=== PATIENT | female | born 1985 | race Caucasian/White ===

== ENCOUNTER 2017-12-04 05:35 | Emergency (ER) | payer MEDICAID ==
[~2017-12-04 05:35] MED LIST: CEPH500C2 PO; OMEP20TA5 PO
== END 2017-12-04 06:30 | disposition left against medical advice (07) ==
LOC: ER 05:36
DX: R52 Pain, unspecified (principal); L08.9 Local infection of the skin and subcutaneous tissue, unspecified; Z53.21 Procedure and treatment not carried out due to patient leaving prior to being seen by health care provider

== ENCOUNTER 2017-12-07 09:50 | Emergency (ER) | payer MEDICAID ==
[~2017-12-07] VITALS: Ht 165.1 cm; Wt 50.0 kg
[2017-12-07 09:51] VITALS: BP 133/71
== END 2017-12-07 10:42 | disposition home or self-care (01) ==
LOC: ER 09:51
DX: Z13.9 Encounter for screening, unspecified (principal); F15.10 Other stimulant abuse, uncomplicated; Z88.5 Allergy status to narcotic agent; Z79.899 Other long term (current) drug therapy; G89.29 Other chronic pain; Z59.0 Homelessness; Z56.0 Unemployment, unspecified
CPT/HCPCS: 99283

== ENCOUNTER 2019-08-30 17:53 | Emergency (ER) | payer MEDICAID, OTHER ==
[~2019-08-30] VITALS: Ht 160 cm; Wt 54.5 kg
[2019-08-30] MEDS ORDERED: acetaminophen 325mg tablet PO ONE (20:45)
[2019-08-30 20:54] VITALS: BP 141/96
== END 2019-08-30 20:56 ==
LOC: ER 17:54
DX: S06.0X9A Concussion with loss of consciousness of unspecified duration, initial encounter (principal); S02.2XXA Fracture of nasal bones, initial encounter for closed fracture; S01.511A Laceration without foreign body of lip, initial encounter; G89.29 Other chronic pain; F15.90 Other stimulant use, unspecified, uncomplicated; F10.99 Alcohol use, unspecified with unspecified alcohol-induced disorder; Z59.0 Homelessness; Z56.0 Unemployment, unspecified; Z79.899 Other long term (current) drug therapy; Y04.8XXA Assault by other bodily force, initial encounter; Y93.89 Activity, other specified; Y92.148 Other place in prison as the place of occurrence of the external cause; Y99.8 Other external cause status; Y90.9 Presence of alcohol in blood, level not specified
CPT/HCPCS: 70450; 70486; 99284

== ENCOUNTER 2020-07-13 07:59 | Emergency (ER) | payer MEDICAID, OTHER ==
[~2020-07-13] VITALS: Ht 162.6 cm; Wt 49.3 kg
[2020-07-13 08:04] VITALS: BP 116/77
[2020-07-13] MEDS ORDERED: CEPH250T PO (08:24)
[2020-07-13 08:33] LABS: URINE HCG NEGATIVE (NEG)
[2020-07-13 08:43] LABS: CLARITY,URINE CLOUDY (Clear); GLUCOSE, URINE NEGATIVE (Neg); KETONES,URINE NEGATIVE (Neg); LEUKOCYTE ESTERASE ,URINE SMALL (Neg); NITRITES, URINE POSITIVE (Neg); OCCULT BLOOD,URINE LARGE (Neg); PROTEIN,URINE TRACE mg/dl (Neg)
[2020-07-13 08:46] LABS: COLOR,URINE DARK YELLOW (Yellow); UA COLLECTION TYPE CLN CATCH MIDSTREAM
[2020-07-13 08:50] LABS: RBC,URINE 0-2 /HPF (0-2); WBC,URINE TNTC /HPF (0-4)
[2020-07-13 08:51] LABS: BACTERIA,URINE 4+ /HPF (Neg); MUCUS STRANDS MANY /LPF (Neg); SQUAMOUS EPITHELIAL CELL,UR MANY /LPF (FEW); WBC CLUMPS,URINE FEW /HPF (NEGATIVE)
== END 2020-07-13 08:32 | disposition home or self-care (01) ==
LOC: ER 07:59
DX: R82.998 Other abnormal findings in urine (principal); R50.9 Fever, unspecified; G89.29 Other chronic pain; F15.90 Other stimulant use, unspecified, uncomplicated; Z98.890 Other specified postprocedural states; Z72.89 Other problems related to lifestyle; Z56.0 Unemployment, unspecified; Z59.0 Homelessness; Z79.2 Long term (current) use of antibiotics; Z79.899 Other long term (current) drug therapy
CPT/HCPCS: 81001; 81025; 99283

== ENCOUNTER 2020-10-29 06:40 | Emergency (ER) | payer MEDICAID ==
[~2020-10-29] VITALS: Ht 162.6 cm; Wt 54.5 kg
== END 2020-10-29 07:01 | disposition home or self-care (01) ==
LOC: ER 06:40
DX: Z00.00 Encounter for general adult medical examination without abnormal findings (principal); R46.0 Very low level of personal hygiene; R21 Rash and other nonspecific skin eruption; E86.0 Dehydration; G89.29 Other chronic pain; Z59.0 Homelessness; Z56.0 Unemployment, unspecified; Z98.890 Other specified postprocedural states; Z79.899 Other long term (current) drug therapy
CPT/HCPCS: 99281

== ENCOUNTER 2020-12-23 10:25 | Emergency (ER) | payer MEDICAID ==
[~2020-12-23] VITALS: Ht 167.6 cm; Wt 57.7 kg
[2020-12-23 10:29] VITALS: BP 114/83
== END 2020-12-23 10:54 | disposition home or self-care (01) ==
LOC: ER 10:26
DX: F15.90 Other stimulant use, unspecified, uncomplicated (principal); Z72.89 Other problems related to lifestyle; G89.29 Other chronic pain; Z59.0 Homelessness; Z56.0 Unemployment, unspecified; Z98.890 Other specified postprocedural states; Z79.899 Other long term (current) drug therapy
CPT/HCPCS: 99281

== ENCOUNTER 2021-11-28 16:55 | Inpatient (IN) | payer MEDICAID ==
[~2021-11-28] VITALS: Ht 162.6 cm; Wt 56.8 kg
[~2021-11-28 16:55] MED LIST changes: +OMEP20TA43 PO; -OMEP20TA5 PO
[2021-11-28] MEDS ORDERED: LORazepam 2 mg/ml vial IM ONE ×2 (17:00)
[2021-11-28] MEDS ORDERED: haloperidol lactate 5mg/ml inj IM ONE ×2 (17:00)
[2021-11-28] MEDS ORDERED: diphenhydrAMINE 50 mg/ml inj IM ONE (17:00)
[2021-11-28 17:58] LABS: BASOPHILS % (AUTO) 0.1 % (0-1); EOSINOPHILS % (AUTO) 0.1 % (0-6); HEMATOCRIT 43.1 % (35.0-45.0); HEMOGLOBIN 14.7 g/dl (12.0-16.0); LYMPHOCYTES # (AUTO) 1.8 X10'3 (1.1-4.8); LYMPHOCYTES % (AUTO) 15.1 % (21-51); MEAN CORPUSCULAR HEMOGLOBIN 32.4 PG (27.0-31.0); MEAN CORPUSCULAR VOLUME 95.2 FL (78-98); MEAN PLATELET VOLUME 7.4 FL (7.4-10.4); MONOCYTES # (AUTO) 1.3 X10'3 (0-0.9); MONOCYTES % (AUTO) 10.4 % (2-12); NEUTROPHILS # (AUTO) 9.1 X10'3 (1.8-7.7); NEUTROPHILS % (AUTO) 74.3 % (42-75); PLATELET COUNT 286 X10'3 (140-440); RED BLOOD COUNT 4.53 X10'6 (4.20-5.60); RED CELL DISTRIBUTION WIDTH 14.7 % (11.5-14.5); WHITE BLOOD COUNT 12.2 X10'3 (4.5-11.0)
[2021-11-28 18:09] LABS: ALANINE AMINOTRANSFERASE 77 U/L (12-78); ALBUMIN 4.3 G/DL (3.4-5.0); ALBUMIN/GLOBULIN RATIO 0.9 (1.1-1.5); ALKALINE PHOSPHATASE 98 IU/L (46-116); ANION GAP 13 (8-16); ASPARTATE AMINO TRANSFERASE 51 U/L (10-37); BILIRUBIN,TOTAL 1.4 MG/DL (0.1-1.0); BLOOD UREA NITROGEN 11 MG/DL (7-18); BUN/CREATININE RATIO 13.1 (6.6-38.0); CALCIUM 9.2 MG/DL (8.5-10.1); CHLORIDE 95 MMOL/L (99-107); CREATININE 0.84 MG/DL (0.40-0.90); GLUCOSE 87 MG/DL (70-104); POTASSIUM 3.1 MMOL/L (3.5-5.1); SODIUM 134 MMOL/L (135-145); TOTAL CARBON DIOXIDE 26.4 MMOL/L (24-32); TOTAL PROTEIN 8.9 G/DL (6.4-8.2); eGFR 78 ML/MIN
[2021-11-28 18:22] LABS: ETHANOL < 0.010 GM/DL (0.0-0.010)
[2021-11-28 19:33] LABS: CLARITY,URINE SLIGHTLY CLOUDY (Clear); COLOR,URINE YELLOW (Yellow); GLUCOSE, URINE NEGATIVE (Neg); KETONES,URINE 40 mg/dl (Neg); LEUKOCYTE ESTERASE ,URINE TRACE (Neg); NITRITES, URINE POSITIVE (Neg); OCCULT BLOOD,URINE MODERATE (Neg); PROTEIN,URINE NEGATIVE (Neg); URINE HCG NEGATIVE (NEG); UROBILINOGEN,URINE 0.2 E.U/dL (0.2-1.0)
[2021-11-28 19:47] LABS: URINE AMPHETAMINE SCREEN POSITIVE (Neg); URINE BARBITUATE SCREEN NEGATIVE (Neg); URINE BENZODIAZEPINES SCREEN NEGATIVE (Neg); URINE CANNABINOID SCREEN NEGATIVE (Neg); URINE COCAINE SCREEN NEGATIVE (Neg); URINE METHADONE SCREEN NEGATIVE (Neg); URINE OPIATE SCREEN NEGATIVE (Neg); URINE PHENCYCLIDINE SCREEN NEGATIVE (Neg)
[2021-11-28 19:52] LABS: UA COLLECTION TYPE NON-SPECIFIED
[2021-11-28 19:54] LABS: BACTERIA,URINE 4+ /HPF (Neg); MUCUS STRANDS FEW /LPF (Neg); SQUAMOUS EPITHELIAL CELL,UR FEW /LPF (FEW)
[2021-11-28 19:55] LABS: AMORPHOUS URATES 1+; WBC CLUMPS,URINE FEW /HPF (NEGATIVE)
--- NOTE | 2021-11-28 20:34 | NUR ---
Arrived from ED room 13, called charge nurse for report, was told someone will call. None recieved as of yet. Pt chart reviewed and pt is resting comfortably with no signs of distress.
--- NOTE | 2021-11-28 20:35 | NUR ---
Pt recieved to hallway bed 27 from the ED brought in by the EMT. Assessment complete, pt not displaying signs or symptoms of distress. EMR reviewed, pt sleeping currently in bed located within my direct line of sight at the nursing station. No report recieved, charge nurse notified.
--- NOTE | 2021-11-28 23:09 | NUR ---
PT resting in bed asleep. Turns self occasionally. No signs of distress.
--- NOTE | 2021-11-29 00:53 | NUR ---
Pt asleep in bed, moves frequently, no signs of distress at this time.
--- NOTE | 2021-11-29 03:21 | NUR ---
Pt sleeping. Occasionally repositions self in bed. No signs of distress.
--- NOTE | 2021-11-29 06:30 | NUR ---
Dr Hylton made aware temp this AM was 101.7. MD asked why pat had fever and needs more information regarding patient.
--- NOTE | 2021-11-29 07:36 | NUR ---
Dr Hylton made aware patient temp is now 102.4 with positive UA yesterday that was not addressed, K 3.1, WBC 12.2. MD to enter abx, will give tylenol via verbal order (see EMAR).
[2021-11-29] MEDS ORDERED: acetaminophen 325mg tablet PO ONE ×3 (07:40→20:30)
[2021-11-29] MEDS ORDERED: normal saline 1000ML IV soln IV ONE ×2 (07:50→22:00)
[2021-11-29] MEDS ORDERED: CefTRIAXone 2gm/NS 100ml IVPB 100 ML IV ONE (07:50)
[2021-11-29 08:25] LABS: BASOPHILS # (AUTO) 0.1 X10'3 (0-0.2); BASOPHILS % (AUTO) 0.8 % (0-1); EOSINOPHILS % (AUTO) 0.1 % (0-6); HEMATOCRIT 37.9 % (35.0-45.0); HEMOGLOBIN 12.6 g/dl (12.0-16.0); LYMPHOCYTES # (AUTO) 2.3 X10'3 (1.1-4.8); LYMPHOCYTES % (AUTO) 17.9 % (21-51); MEAN CORPUSCULAR HEMOGLOBIN 31.7 PG (27.0-31.0); MEAN CORPUSCULAR HGB CONC 33.4 g/dL (33.0-36.5); MEAN CORPUSCULAR VOLUME 94.8 FL (78-98); MEAN PLATELET VOLUME 7.5 FL (7.4-10.4); MONOCYTES # (AUTO) 1.8 X10'3 (0-0.9); MONOCYTES % (AUTO) 13.7 % (2-12); NEUTROPHILS # (AUTO) 8.6 X10'3 (1.8-7.7); NEUTROPHILS % (AUTO) 67.5 % (42-75); PLATELET COUNT 256 X10'3 (140-440); RED BLOOD COUNT 3.99 X10'6 (4.20-5.60); RED CELL DISTRIBUTION WIDTH 14.5 % (11.5-14.5); WHITE BLOOD COUNT 12.8 X10'3 (4.5-11.0)
--- NOTE | 2021-11-29 08:31 | NUR ---
Dr Hylton made aware patient's eyes are swollen, face is red and swollen, pat unable to open eyes. Possibly related to tree sap patient rubbed all over her face. Lubricant placed on dried tree sap on patient's face to help remove substance. MD to evaluate patient at bedside.
[2021-11-29 08:44] LABS: ALANINE AMINOTRANSFERASE 48 U/L (12-78); ALBUMIN 2.9 G/DL (3.4-5.0); ALBUMIN/GLOBULIN RATIO 0.7 (1.1-1.5); ALKALINE PHOSPHATASE 77 IU/L (46-116); ANION GAP 13 (8-16); ASPARTATE AMINO TRANSFERASE 35 U/L (10-37); BILIRUBIN,TOTAL 0.9 MG/DL (0.1-1.0); BLOOD UREA NITROGEN 8 MG/DL (7-18); CALCIUM 8.2 MG/DL (8.5-10.1); CHLORIDE 98 MMOL/L (99-107); GLUCOSE 101 MG/DL (70-104); POTASSIUM 3.2 MMOL/L (3.5-5.1); SODIUM 133 MMOL/L (135-145); TOTAL CARBON DIOXIDE 22.3 MMOL/L (24-32); TOTAL PROTEIN 6.8 G/DL (6.4-8.2); eGFR 82 ML/MIN
--- NOTE | 2021-11-29 09:00 | NUR ---
PATIENT SLEEPING, NO SIGNS OF DISTRESS NOTED, WITHIN LINE OF SIGHT OF STAFF AT ALL TIMES.
--- NOTE | 2021-11-29 10:10 | NUR ---
PATIENT SLEEPING, NO SIGNS OF DISTRESS NOTED.
--- NOTE | 2021-11-29 11:10 | NUR ---
Dr Hylton made aware patient has not voided yet after 2L NS bolus (see EMAR). No new orders at this time, patient continues to sleep, within line of sight of staff at all times. Addendum: 11/29/21 at [address] Hylton patient medically cleared for evaluation from [facility].
[2021-11-29] MEDS ORDERED: NO HOME MEDS (11:23)
--- NOTE | 2021-11-29 12:10 | NUR ---
PAT CONTINUES TO SLEEP, NO SIGNS OF DISTRESS NOTED.
--- NOTE | 2021-11-29 13:24 | NUR ---
DR REYNOLDS MADE AWARE PAT TEMP 102.2 AND EYES STILL SWOLLEN SHUT. MD TO ASSESS PATIENT AT BEDSIDE, ORDERS FOR MEDS RECEIVED.
--- NOTE | 2021-11-29 14:05 | NUR ---
PATIENT SLEEPING NO SIGNS OF DISTRESS NOTED.
--- NOTE | 2021-11-29 15:03 | NUR ---
DR KAN MADE AWARE PATIENT GOT UP TO THE BATHROOM AND WAS UNABLE TO SEE WHERE SHE WAS GOINT R/T EYE SWELLING, MD TO COME ASSESS PATIENT, COLD COMPRESS PLACED ON PATIENT'S EYES AFTER PATIENT ATE SOME LUNCH.
--- NOTE | 2021-11-29 16:00 | NUR ---
PATIENT SLEEPING ON LEFT SIDE, NO SIGNS OF DISTRESS NOTED.
--- NOTE | 2021-11-29 17:04 | NUR ---
PATIENT SLEEPING ON RIGHT SIDE. NO SIGNS OF DISTRESS NOTED.
[2021-11-29] MEDS: cephalexin 250mg capsule PO SCH (19:26)
--- NOTE | 2021-11-29 20:35 | NUR ---
Patient sleeping in bed. Patient face is red and eyes are swollen. Pt temp 102.4. Dr Knight ordered Tylenol 650mg. Waiting on examination.
--- NOTE | 2021-11-29 21:29 | NUR ---
Pt fever 102.5. Cool wash cloth applied to forehead. Waiting for Dr examination
[2021-11-29] MEDS ORDERED: piperacillin/tazo 3.375gm/50ml 50 ML IV ONE (22:00)
[2021-11-29] MEDS ORDERED: normal saline 1000ml 1,000 ML IV ONE (22:00)
--- NOTE | 2021-11-29 22:17 | NUR ---
Dr Knight examined pt, 2,000 NS bolus ordered and Zosyn.
[2021-11-29 22:23] LABS: BASOPHILS # (AUTO) 0.1 X10'3 (0-0.2); BASOPHILS % (AUTO) 0.6 % (0-1); EOSINOPHILS % (AUTO) 0.2 % (0-6); HEMATOCRIT 36.9 % (35.0-45.0); HEMOGLOBIN 12.3 g/dl (12.0-16.0); LYMPHOCYTES # (AUTO) 1.4 X10'3 (1.1-4.8); LYMPHOCYTES % (AUTO) 14.7 % (21-51); MEAN CORPUSCULAR HEMOGLOBIN 31.7 PG (27.0-31.0); MEAN CORPUSCULAR HGB CONC 33.4 g/dL (33.0-36.5); MEAN CORPUSCULAR VOLUME 94.8 FL (78-98); MEAN PLATELET VOLUME 7.5 FL (7.4-10.4); MONOCYTES # (AUTO) 1.4 X10'3 (0-0.9); NEUTROPHILS # (AUTO) 6.9 X10'3 (1.8-7.7); NEUTROPHILS % (AUTO) 70.5 % (42-75); PLATELET COUNT 208 X10'3 (140-440); RED BLOOD COUNT 3.89 X10'6 (4.20-5.60); RED CELL DISTRIBUTION WIDTH 14.2 % (11.5-14.5); WHITE BLOOD COUNT 9.8 X10'3 (4.5-11.0)
--- NOTE | 2021-11-29 22:39 | NUR ---
Dr Knight ordered Zosyn 100ml hr, running with no complications
[2021-11-29 22:44] LABS: ALANINE AMINOTRANSFERASE 37 U/L (12-78); ALBUMIN 2.3 G/DL (3.4-5.0); ALBUMIN/GLOBULIN RATIO 0.6 (1.1-1.5); ALKALINE PHOSPHATASE 69 IU/L (46-116); ANION GAP 10 (8-16); ASPARTATE AMINO TRANSFERASE 29 U/L (10-37); BILIRUBIN,TOTAL 0.5 MG/DL (0.1-1.0); BLOOD UREA NITROGEN 8 MG/DL (7-18); BUN/CREATININE RATIO 10.5 (6.6-38.0); CALCIUM 7.5 MG/DL (8.5-10.1); CHLORIDE 102 MMOL/L (99-107); CREATININE 0.76 MG/DL (0.40-0.90); GLUCOSE 110 MG/DL (70-104); POTASSIUM 3.2 MMOL/L (3.5-5.1); SODIUM 135 MMOL/L (135-145); TOTAL CARBON DIOXIDE 23.1 MMOL/L (24-32); TOTAL PROTEIN 6.1 G/DL (6.4-8.2); eGFR 87 ML/MIN
[2021-11-29] MEDS ORDERED: morphine 2 MG/ML inj. syringe IV PRN ×2 (23:10)
[2021-11-29] MEDS ORDERED: mag hydrox/Alum hydrox/simeth 30ml oral suspension PO PRN (23:10)
[2021-11-29] MEDS ORDERED: acetaminophen 325mg tablet PO PRN (23:10)
[2021-11-29] MEDS ORDERED: HYDROcodone/acetaminophen 5mg/325mg tablet PO PRN (23:10)
[2021-11-29] MEDS ORDERED: magnesium hydroxide 30ml (MOM) UD suspension PO PRN (23:10)
[2021-11-29] MEDS ORDERED: metoclopramide 5 mg/ml inj IV PRN (23:10)
[2021-11-29] MEDS ORDERED: dextrose 5%-1/2 normal saline 1,000 ML IV SCH (23:10)
[2021-11-29] MEDS ORDERED: ondansetron/PF 4mg/2ml inj IV PRN (23:10)
--- NOTE | 2021-11-29 23:17 | NUR ---
Dr Knight came to see pt. Dr suggested looking into old med rec for past medication HX. Upon inspection pt has hx of taking Cephalexin, and Omprazole. Lab called. Patient has + blood culture with cocci cluster, aerobic.
--- NOTE | 2021-11-29 23:36 | NUR ---
PAGER ID: [phone] MESSAGE: Manav Garcia rm 27 ED overflow. + blood culture.cocci cluster. Aerobic. Thank you, Yee. [phone]
[2021-11-30] MEDS: acetaminophen 325mg tablet PO PRN ×2 (02:28→11:13)
--- NOTE | 2021-11-30 03:02 | NUR ---
P_atient woke up, used bathroom and ate a jello with the help of tech. Patient is polite and cooperative. Lubricant applied to eyes per Dr orders.
[2021-11-30 03:48] LABS: BASOPHILS # (AUTO) 0.1 X10'3 (0-0.2); BASOPHILS % (AUTO) 0.7 % (0-1); EOSINOPHILS % (AUTO) 0.3 % (0-6); HEMOGLOBIN 11.6 g/dl (12.0-16.0); LYMPHOCYTES # (AUTO) 1.4 X10'3 (1.1-4.8); MEAN CORPUSCULAR HEMOGLOBIN 31.5 PG (27.0-31.0); MEAN CORPUSCULAR HGB CONC 33.1 g/dL (33.0-36.5); MEAN CORPUSCULAR VOLUME 95.2 FL (78-98); MEAN PLATELET VOLUME 7.8 FL (7.4-10.4); MONOCYTES # (AUTO) 0.9 X10'3 (0-0.9); MONOCYTES % (AUTO) 12.9 % (2-12); NEUTROPHILS # (AUTO) 4.8 X10'3 (1.8-7.7); NEUTROPHILS % (AUTO) 66.1 % (42-75); PLATELET COUNT 182 X10'3 (140-440); RED BLOOD COUNT 3.68 X10'6 (4.20-5.60); RED CELL DISTRIBUTION WIDTH 14.4 % (11.5-14.5); WHITE BLOOD COUNT 7.2 X10'3 (4.5-11.0)
--- NOTE | 2021-11-30 03:56 | NUR ---
received report from shakir Fraire.
[2021-11-30 04:02] LABS: ALBUMIN 2.1 G/DL (3.4-5.0); ANION GAP 9 (8-16); BLOOD UREA NITROGEN 5 MG/DL (7-18); BUN/CREATININE RATIO 7.2 (6.6-38.0); CALCIUM 6.9 MG/DL (8.5-10.1); CHLORIDE 104 MMOL/L (99-107); CREATININE 0.69 MG/DL (0.40-0.90); GLUCOSE 150 MG/DL (70-104); POTASSIUM 3.1 MMOL/L (3.5-5.1); SODIUM 134 MMOL/L (135-145); TOTAL CARBON DIOXIDE 21.3 MMOL/L (24-32); eGFR > 90 ML/MIN
[2021-11-30 04:23] VITALS: BP 116/72
--- NOTE | 2021-11-30 04:32 | NUR ---
MESSAGE: [id number] EDUARASHLEYMARLENA 35, UTI, METH/PSYCOSIS. K IS 3.1. CAN SHE BE ON REPLACEMENT PROTOCOL? THANK YOU. #[id number] THOMAS
--- NOTE | 2021-11-30 06:23 | NUR ---
Problems reprioritized. Patient report given, questions answered & plan of care reviewed with shakir Vargas.
[2021-11-30 07:10] VITALS: BP 124/76
--- NOTE | 2021-11-30 07:15 | NUR ---
PAGED DR RAMÍREZ RE: Message: MARLENA WITT. Sade 3.1. NEED K REPLACEMENT ORDER. O/N CARLOS A 5199 Custom Responses: promotional table spacer Transaction number: [id number]
[2021-11-30] MEDS: cephalexin 250mg capsule PO SCH (07:56)
[2021-11-30] MEDS: docusate sod 100mg capsule PO SCH ×2 (07:56→19:55)
[2021-11-30] MEDS: cefTRIAXone 1g/NS 100ml IVPB 100 ML IV SCH (07:57)
[2021-11-30] MEDS ORDERED: potassium Cl 20 mEq SR tablet PO PRN (08:45)
[2021-11-30] MEDS ORDERED: potassium CL 10mEq/100ml bag 100 ML IV PRN (08:45)
[2021-11-30] MEDS ORDERED: magnesium 2GM in 50ml NS 50 ML IV PRN (08:45)
[2021-11-30] MEDS ORDERED: magnesium 4gm in 100ml NS 100 ML IV PRN (08:45)
[2021-11-30] MEDS ORDERED: magnesium Cl slow-release 64mg tablet PO PRN (08:45)
[2021-11-30 09:42] LABS: MAGNESIUM 1.6 MG/DL (1.5-2.4)
[2021-11-30] MEDS: potassium Cl 20 mEq SR tablet PO PRN ×3 (09:57→19:56)
[2021-11-30 10:00] VITALS: BP 127/78
[2021-11-30] MEDS ORDERED: iohexol 300mg/ml 100ml inj. ONE (10:31)
[2021-11-30] MEDS: dextrose 5%-normal saline 1,000 ML IV SCH ×2 (11:06→16:50)
[2021-11-30] MEDS ORDERED: cephalexin 500mg capsule PO SCH (12:09)
[2021-11-30 14:51] VITALS: BP 138/78
[2021-11-30 18:00] VITALS: BP 112/78
--- NOTE | 2021-11-30 18:22 | NUR ---
Problems reprioritized. Patient report given, questions answered & plan of care reviewed with sdy schilling.
[2021-11-30] MEDS: K and/or MAG REPLACEMENT MC SCH (19:05)
--- NOTE | 2021-11-30 19:24 | NUR ---
pt trying to leave AMA. demanding shower and soda. placed pt in shower with sitter with her. sent page to day hospitalist dr. Dial. if no response will page Jeronimo. : Ashu [phone] - pt Vielka Garcia trying to leave AMA. she is [phone]. need anxiety med IM or IV please
--- NOTE | 2021-11-30 19:31 | NUR ---
paged Dr. Decker same message. awaiting response
[2021-11-30] MEDS ORDERED: ziprasidone IM 20mg inj **IM only IM ONE (19:50)
--- NOTE | 2021-11-30 19:50 | NUR ---
Dr Decker called and ordered geodon x1. call back if ineffective. RN aware of interaction with zofran and will not administer zofran this shift.
[2021-11-30] MEDS: heparin, porcine 5000 units/ml vial SQ SCH (19:57)
[2021-11-30 22:00] VITALS: BP 123/82
[2021-12-01] MEDS: dextrose 5%-normal saline 1,000 ML IV SCH ×3 (00:50→13:13)
[2021-12-01 06:00] VITALS: BP 123/80
--- NOTE | 2021-12-01 06:37 | NUR ---
Paged Hospitalist regarding Nicotine patch
[2021-12-01 06:48] LABS: EOSINOPHILS # (AUTO) 0.1 X10'3 (0-0.9); HEMOGLOBIN 11.9 g/dl (12.0-16.0); LYMPHOCYTES # (AUTO) 2.2 X10'3 (1.1-4.8); MEAN CORPUSCULAR VOLUME 97.6 FL (78-98); MONOCYTES # (AUTO) 0.9 X10'3 (0-0.9); NEUTROPHILS # (AUTO) 2.2 X10'3 (1.8-7.7)
[2021-12-01 06:50] LABS: BASOPHILS % (AUTO) 0.6 % (0-1); EOSINOPHILS % (AUTO) 1.8 % (0-6); HEMATOCRIT 35.9 % (35.0-45.0); LYMPHOCYTES % (AUTO) 40.1 % (21-51); MEAN CORPUSCULAR HEMOGLOBIN 32.4 PG (27.0-31.0); MEAN CORPUSCULAR HGB CONC 33.2 g/dL (33.0-36.5); MEAN PLATELET VOLUME 7.7 FL (7.4-10.4); NEUTROPHILS % (AUTO) 40.5 % (42-75); PLATELET COUNT 220 X10'3 (140-440); RED BLOOD COUNT 3.68 X10'6 (4.20-5.60); RED CELL DISTRIBUTION WIDTH 14.8 % (11.5-14.5); WHITE BLOOD COUNT 5.5 X10'3 (4.5-11.0)
[2021-12-01 07:08] LABS: ANION GAP 6 (8-16); BLOOD UREA NITROGEN 4 MG/DL (7-18); BUN/CREATININE RATIO 6.3 (6.6-38.0); CALCIUM 8.3 MG/DL (8.5-10.1); CHLORIDE 108 MMOL/L (99-107); CREATININE 0.63 MG/DL (0.40-0.90); GLUCOSE 133 MG/DL (70-104); MAGNESIUM 1.6 MG/DL (1.5-2.4); POTASSIUM 4.1 MMOL/L (3.5-5.1); SODIUM 139 MMOL/L (135-145); TOTAL CARBON DIOXIDE 24.6 MMOL/L (24-32); eGFR > 90 ML/MIN
--- NOTE | 2021-12-01 07:16 | NUR ---
Patient in room ORTHO 4010. I have received report from Danyell KERN and had the opportunity to ask questions and assume patient care.
--- NOTE | 2021-12-01 07:45 | NUR ---
Message: Gina [phone] Re: Jose [id number], Patient wanting a nicotine patch and can we get some Ativan for patient she is very anxious and thinks she is getting discharged today.
[2021-12-01] MEDS: cefTRIAXone 1g/NS 100ml IVPB 100 ML IV SCH (07:54)
[2021-12-01] MEDS: docusate sod 100mg capsule PO SCH ×2 (08:00→19:34)
[2021-12-01] MEDS: heparin, porcine 5000 units/ml vial SQ SCH ×2 (08:00→19:30)
[2021-12-01] MEDS: K and/or MAG REPLACEMENT MC SCH ×2 (08:00→20:00)
--- NOTE | 2021-12-01 08:00 | NUR ---
Patient refusing treatement will not allow me to do an assessment on her. Patient states she just wants to leave wants the doctor to discharge her. Patient states she asked to be admitted because she could not see and now she can see. I advised patient that her not letting us help her to get better does not help her case for being able to take care of herself when she leaves. I will advise doctor. Bal Shin at bedside states patient told her that if she is not discharged today she will " kill everyone " Patient is moving around in room not being careful with IV that is attached to her. Have a page out to Dr Dial for some Atian to help her with her anxiety will repage.
--- NOTE | 2021-12-01 08:15 | NUR ---
Message: Gina [phone] Re: Jose [id number] Patient refusing treatment very anxious states if she does not get discharged today will kill everyone can I get some Ativan or Geodon if needed
[2021-12-01 08:25] LABS: TOTAL CELLS COUNTED 100
[2021-12-01 08:26] LABS: PLATELET ESTIMATE NORMAL
[2021-12-01] MEDS ORDERED: haloperidol lactate 5mg/ml inj IM PRN (09:05)
[2021-12-01] MEDS ORDERED: LORazepam 2 mg/ml vial IV PRN (09:05)
[2021-12-01] MEDS ORDERED: nicotine 21mg patch - 24 hr TD ONE (09:05)
--- NOTE | 2021-12-01 09:10 | NUR ---
Message: Vielka oRbertson#[phone]- pt very agitated, security on site, pts wants to see you florentino. wants to leave. Please advise. Vianney Patel4
--- NOTE | 2021-12-01 09:14 | NUR ---
Per Dr Dial patient can have 2 mg IV ativan now, Then patient can have 5mg Haldol im now then in 10 min if patient is still agitated she can have another 5mg IM haldol
[2021-12-01] MEDS ORDERED: VANCOmycin 1250MG/NS 250ml Bag 250 ML IV SCH (09:19)
[2021-12-01] MEDS: LORazepam 2 mg/ml vial IV PRN ×2 (09:23→13:45)
[2021-12-01 14:00] VITALS: BP 124/85
--- NOTE | 2021-12-01 18:43 | NUR ---
Problems reprioritized. Patient report given, questions answered & plan of care reviewed with Edmond KERN and Virginie NICKERSON.
[2021-12-01 23:13] VITALS: BP 123/89
[2021-12-02] MEDS: dextrose 5%-normal saline 1,000 ML IV SCH ×3 (00:50→16:19)
[2021-12-02 02:00] VITALS: BP 125/82
[2021-12-02 06:00] VITALS: BP 125/82
--- NOTE | 2021-12-02 06:54 | NUR ---
Patient in room ORTHO 4008. I have received report from april KERN and had the opportunity to ask questions and assume patient care.
[2021-12-02 07:04] LABS: ALANINE AMINOTRANSFERASE 31 U/L (12-78); ALBUMIN 2.1 G/DL (3.4-5.0); ALBUMIN/GLOBULIN RATIO 0.5 (1.1-1.5); ALKALINE PHOSPHATASE 54 IU/L (46-116); ANION GAP 8 (8-16); ASPARTATE AMINO TRANSFERASE 27 U/L (10-37); BILIRUBIN,TOTAL 0.1 MG/DL (0.1-1.0); BLOOD UREA NITROGEN 5 MG/DL (7-18); BUN/CREATININE RATIO 8.8 (6.6-38.0); CALCIUM 8.2 MG/DL (8.5-10.1); CHLORIDE 107 MMOL/L (99-107); CREATININE 0.57 MG/DL (0.40-0.90); GLUCOSE 114 MG/DL (70-104); MAGNESIUM 1.3 MG/DL (1.5-2.4); PHOSPHORUS 3.8 MG/DL (2.3-4.5); POTASSIUM 4.2 MMOL/L (3.5-5.1); SODIUM 140 MMOL/L (135-145); TOTAL CARBON DIOXIDE 24.8 MMOL/L (24-32); TOTAL PROTEIN 6.1 G/DL (6.4-8.2); eGFR > 90 ML/MIN
[2021-12-02] MEDS: K and/or MAG REPLACEMENT MC SCH ×2 (08:00→20:00)
[2021-12-02] MEDS: docusate sod 100mg capsule PO SCH ×2 (08:49→19:56)
[2021-12-02] MEDS: nicotine 21mg patch - 24 hr TD SCH (08:49)
[2021-12-02] MEDS: cefTRIAXone 1g/NS 100ml IVPB 100 ML IV SCH (08:50)
[2021-12-02] MEDS: heparin, porcine 5000 units/ml vial SQ SCH ×2 (08:50→19:56)
[2021-12-02 10:00] VITALS: BP 125/80
[2021-12-02 14:00] VITALS: BP 124/88
--- NOTE | 2021-12-02 18:48 | NUR ---
Problems reprioritized. Patient report given, questions answered & plan of care reviewed with Adriana KERN.
[2021-12-02 20:16] VITALS: BP 127/93
[2021-12-02] MEDS ORDERED: VANCOMYCIN LEVEL IV ONE (20:30)
[2021-12-02] MEDS: LORazepam 2 mg/ml vial IV PRN (21:03)
[2021-12-02 22:40] VITALS: BP_SYST 127; BP_SYST 135; BP_DIAS 93; BP_DIAS 99
[2021-12-03] MEDS: dextrose 5%-normal saline 1,000 ML IV SCH ×2 (01:27→08:51)
[2021-12-03 02:20] VITALS: BP 124/89
[2021-12-03 06:00] VITALS: BP 118/73
[2021-12-03 06:42] LABS: ALANINE AMINOTRANSFERASE 37 U/L (12-78); ALBUMIN 2.2 G/DL (3.4-5.0); ALBUMIN/GLOBULIN RATIO 0.6 (1.1-1.5); ALKALINE PHOSPHATASE 54 IU/L (46-116); ANION GAP 6 (8-16); ASPARTATE AMINO TRANSFERASE 28 U/L (10-37); BILIRUBIN,TOTAL 0.1 MG/DL (0.1-1.0); BLOOD UREA NITROGEN 7 MG/DL (7-18); BUN/CREATININE RATIO 12.1 (6.6-38.0); CALCIUM 8.5 MG/DL (8.5-10.1); CHLORIDE 106 MMOL/L (99-107); CREATININE 0.58 MG/DL (0.40-0.90); GLUCOSE 120 MG/DL (70-104); MAGNESIUM 1.6 MG/DL (1.5-2.4); PHOSPHORUS 4.1 MG/DL (2.3-4.5); SODIUM 140 MMOL/L (135-145); TOTAL CARBON DIOXIDE 28.2 MMOL/L (24-32); TOTAL PROTEIN 6.1 G/DL (6.4-8.2); eGFR > 90 ML/MIN
--- NOTE | 2021-12-03 06:49 | NUR ---
Patient in room ORTHO 4008. I have received report from CONCHA Mensah and had the opportunity to ask questions and assume patient care.
[2021-12-03] MEDS: K and/or MAG REPLACEMENT MC SCH (08:00)
[2021-12-03] MEDS: docusate sod 100mg capsule PO SCH (08:00)
[2021-12-03] MEDS: heparin, porcine 5000 units/ml vial SQ SCH (08:00)
[2021-12-03] MEDS: nicotine 21mg patch - 24 hr TD SCH (08:38)
[2021-12-03] MEDS: cefTRIAXone 1g/NS 100ml IVPB 100 ML IV SCH (08:38)
[2021-12-03 10:00] VITALS: BP 101/66
--- NOTE | 2021-12-03 10:16 | NUR ---
Initial: Pt admit on 5149 for acute pyelonephritis, DTS with psychotic behavior, and positive for meth. Pt on a regular diet and initially eating poorly with 0% PO intake however this has improved to 75-100% PO intake since dinner 11/30 meeting estimated nutrient needs. Noted pt receiving D5NS at 125 mL/hr which provides 510 kcal/day. LBM 12/01, with routine bowel care available though pt refuses at times per EMR. No nutrition intervention implemented at this time. Will continue to follow. Recommendations: 1) Continue regular diet 2) Routine bowel care 3) Scaled weight this admit; subsequent weekly scaled weights Addendum: 12/03/21 at [address] Amended: Links added.
[2021-12-03] MEDS ORDERED: LACT1CAP26 PO (11:56)
[2021-12-03] MEDS ORDERED: CEFD300C3 PO (11:56)
--- NOTE | 2021-12-03 13:38 | NUR ---
Pt discharged to home at 1320, with all belongings. Clothing provided to pt, as well as sandwiches and snacks. Pt instructed to obtain PCP and to follow up as soon as able. New prescriptions e-scripted to [facility] on [address]. [employer] offered to pt to berry picker prescriptions but pt declined. Education provided to pt regarding abstaining from all illicit drug abuse, as well as taking full course of antibiotics as directed. Pt stated understanding and willingness to comply with all discharge instructions. IV DC'd, cannula intact. Pt escorted to front lobby by PCT.
== END 2021-12-03 13:20 | disposition home or self-care (01) | DRG 720 ==
LOC: ER 16:56 → ED HOLD 11-29 23:09 → UNDOADMIN 11-29 23:09 → ORTHO 4S 11-29 23:09
PROVIDERS: ADMIT Internal Medicine; ATTEND Family Medicine
PROC: BW211ZZ Computerized Tomography (CT Scan) of Abdomen and Pelvis using Low Osmolar Contrast (ICD-10-PCS; principal; 2021-11-30)
DX: A41.50 Gram-negative sepsis, unspecified (principal); F15.259 Other stimulant dependence with stimulant-induced psychotic disorder, unspecified; Z20.822 Contact with and (suspected) exposure to COVID-19; B96.20 Unspecified Escherichia coli [E. coli] as the cause of diseases classified elsewhere; G89.29 Other chronic pain; E87.6 Hypokalemia; N10 Acute pyelonephritis; Z56.0 Unemployment, unspecified; Z59.00 Homelessness unspecified; Z71.51 Drug abuse counseling and surveillance of drug abuser
CPT/HCPCS: 36415; 74177; 80048; 80053; 80305; 80320; 81001; 81025; 83605; 83735; 84100; 84145; 84443; 85007; 85025; 87040; 87077; 87081; 87088; 87186; 87635; 96365; 96372; 96375; 99285; 99291; C9803; G0378; J0696; J1200; J1630; J1644; J2060; J2543; J3370; J3486; J7030; J7042; Q9967

== ENCOUNTER 2021-12-29 22:22 | Emergency (ER) | payer MEDICAID ==
[~2021-12-29] VITALS: Ht 162.6 cm; Wt 59.1 kg
[~2021-12-29 22:22] MED LIST changes: +CEFD300C3 PO; -CEPH500C2 PO; +LACT1CAP26 PO; -OMEP20TA43 PO
[2021-12-29 22:36] VITALS: BP 129/92
--- NOTE | 2021-12-29 23:20 | NUR ---
Spoke with patient after witnessed lighting of cigaretted in the lobby of emergency room. Patient attempted to deny as she held the burning cigarette in her hand. Educated on the smoking policy and the zero tolerance for smoking within the hospital building.
[2021-12-30] MEDS ORDERED: acetaminophen 325mg tablet PO ONE (00:40)
[2021-12-30] MEDS ORDERED: normal saline 1000ml 1,000 ML IV ONE (00:40)
[2021-12-30] MEDS ORDERED: proCHLORperazine 10 MG/2 ml inj IV ONE (00:40)
--- NOTE | 2021-12-30 03:21 | NUR ---
iv dc'd pt being discharged. dressing applied
== END 2021-12-30 03:23 | disposition home or self-care (01) ==
LOC: ER 22:22
DX: R51.9 Headache, unspecified (principal); R11.0 Nausea; G89.29 Other chronic pain
CPT/HCPCS: 70450; 96361; 96374; 99284; J0780; J7030

== ENCOUNTER 2022-01-05 16:22 | Emergency (ER) | payer MEDICAID ==
[~2022-01-05] VITALS: Ht 167.6 cm; Wt 50.0 kg
[~2022-01-05 16:22] MED LIST changes: -CEFD300C3 PO
[2022-01-05] MEDS ORDERED: LORazepam 1 MG tablet PO ONE (17:00)
[2022-01-05] MEDS ORDERED: olanzapine 10mg tablet PO STA (17:12)
[2022-01-05 17:26] LABS: BASOPHILS # (AUTO) 0.1 X10'3 (0-0.2); BASOPHILS % (AUTO) 0.8 % (0-1); EOSINOPHILS # (AUTO) 0.4 X10'3 (0-0.9); EOSINOPHILS % (AUTO) 3.6 % (0-6); HEMATOCRIT 38.6 % (35.0-45.0); HEMOGLOBIN 12.9 g/dl (12.0-16.0); LYMPHOCYTES # (AUTO) 3.7 X10'3 (1.1-4.8); LYMPHOCYTES % (AUTO) 37.1 % (21-51); MEAN CORPUSCULAR HEMOGLOBIN 30.6 PG (27.0-31.0); MEAN CORPUSCULAR HGB CONC 33.3 g/dL (33.0-36.5); MEAN PLATELET VOLUME 7.3 FL (7.4-10.4); MONOCYTES # (AUTO) 1.2 X10'3 (0-0.9); MONOCYTES % (AUTO) 11.8 % (2-12); NEUTROPHILS # (AUTO) 4.7 X10'3 (1.8-7.7); NEUTROPHILS % (AUTO) 46.7 % (42-75); PLATELET COUNT 360 X10'3 (140-440)
[2022-01-05] MEDS ORDERED: haloperidol lactate 5mg/ml inj ONE (17:38)
[2022-01-05 17:40] LABS: ALANINE AMINOTRANSFERASE 53 U/L (12-78); ALBUMIN 3.9 G/DL (3.4-5.0); ALBUMIN/GLOBULIN RATIO 1.1 (1.1-1.5); ALKALINE PHOSPHATASE 70 IU/L (46-116); ANION GAP 6 (8-16); ASPARTATE AMINO TRANSFERASE 37 U/L (10-37); BILIRUBIN,TOTAL 0.8 MG/DL (0.1-1.0); BLOOD UREA NITROGEN 14 MG/DL (7-18); BUN/CREATININE RATIO 20.6 (6.6-38.0); CALCIUM 8.7 MG/DL (8.5-10.1); CHLORIDE 103 MMOL/L (99-107); CREATININE 0.68 MG/DL (0.40-0.90); GLUCOSE 99 MG/DL (70-104); POTASSIUM 3.2 MMOL/L (3.5-5.1); SODIUM 140 MMOL/L (135-145); TOTAL CARBON DIOXIDE 30.6 MMOL/L (24-32); TOTAL PROTEIN 7.6 G/DL (6.4-8.2); eGFR > 90 ML/MIN
[2022-01-05] MEDS ORDERED: haloperidol lactate 5mg/ml inj IM ONE (17:40)
[2022-01-05 17:49] LABS: ETHANOL < 0.010 GM/DL (0.0-0.010)
--- NOTE | 2022-01-05 22:11 | NUR ---
Patient ambulated with assistance from main ED to overflow bathroom. Patient voided, not a clean catch. Urine sent to lab. Patient will not verbalize with this resume writer. Once in bed this patient immediately goes to sleep. Bed is in mid fowlers position. Warm blankets provided. Patient is in view from nurses station.
[2022-01-05 22:19] LABS: URINE HCG NEGATIVE (NEG)
[2022-01-05 22:22] LABS: CLARITY,URINE CLEAR (Clear); COLOR,URINE YELLOW (Yellow); GLUCOSE, URINE NEGATIVE (Neg); KETONES,URINE NEGATIVE (Neg); LEUKOCYTE ESTERASE ,URINE NEGATIVE (Neg); NITRITES, URINE NEGATIVE (Neg); OCCULT BLOOD,URINE NEGATIVE (Neg); PH,URINE 5.5 (4.8-8.0); PROTEIN,URINE NEGATIVE (Neg); UROBILINOGEN,URINE 0.2 E.U/dL (0.2-1.0)
[2022-01-05 22:26] LABS: URINE AMPHETAMINE SCREEN POSITIVE (Neg); URINE BARBITUATE SCREEN NEGATIVE (Neg); URINE BENZODIAZEPINES SCREEN NEGATIVE (Neg); URINE CANNABINOID SCREEN NEGATIVE (Neg); URINE COCAINE SCREEN NEGATIVE (Neg); URINE METHADONE SCREEN NEGATIVE (Neg); URINE OPIATE SCREEN NEGATIVE (Neg); URINE PHENCYCLIDINE SCREEN NEGATIVE (Neg)
[2022-01-05 22:30] LABS: UA COLLECTION TYPE NON-SPECIFIED
[2022-01-05] MEDS ORDERED: potassium Cl 20 mEq SR tablet PO ONE (22:50)
--- NOTE | 2022-01-05 23:44 | NUR ---
Patient is sleeping quietly, low fowlers position in bed.
--- NOTE | 2022-01-06 01:48 | NUR ---
Patient is sleeping quietly, low fowlers in bed, she has repositioned onto her left side.
--- NOTE | 2022-01-06 05:49 | NUR ---
Patient sleeping in mid fowlers position. no distress.
--- NOTE | 2022-01-06 05:52 | NUR ---
Patient has slept all night. Day shift RN will be notified to administer KCL 40 mEq in am.
[2022-01-06] MEDS: OLANZAPINE 5 MG TABLET PO SCH (08:12)
--- NOTE | 2022-01-06 18:44 | NUR ---
Pt awake eating dinner in bed.
[2022-01-06] MEDS ORDERED: OLANZapine 2.5MG tablet PO STA (20:51)
--- NOTE | 2022-01-06 20:53 | NUR ---
PT woke up yelling. She threatens to "kill bothn of you bitches" and yells obcene sexual things. RN tries to redirect pt, pt calls RN "stupid bitch"
--- NOTE | 2022-01-06 21:20 | NUR ---
PT given PO zyprexa 10 mg for agitation
--- NOTE | 2022-01-06 22:49 | NUR ---
PT up to use the restroom
--- NOTE | 2022-01-07 02:00 | NUR ---
Pt requests snacks, given a sandwhich
--- NOTE | 2022-01-07 03:30 | NUR ---
Pt asleep on L side, respirations WNL
--- NOTE | 2022-01-07 06:00 | NUR ---
Received pt. sleeping at the beginnig of the shift, rr are even and unlabored.
--- NOTE | 2022-01-07 07:00 | NUR ---
Pt. up and down out of bed at intervals, she presents as disorganized. Pt. requested a snack and was provided with crackers.
--- NOTE | 2022-01-07 08:10 | NUR ---
Pt. is sitting up eating breakfast at this time.
[2022-01-07] MEDS: OLANZAPINE 5 MG TABLET PO SCH (08:22)
--- NOTE | 2022-01-07 10:03 | NUR ---
Pt. is laying in bed at this time and continues to get up frequently to request items and food. She presents as disoriented and disorganized. When questioned regarding any MH s/s, pt. denied any S/I, H/I, A/V/PINEDO, and no delusional statements were made. When questioned why she came to the hospital, pt. stated, "I need to get some sleep." Pt. then states, "They are helping me get into a program," but she is unable to articulate who is doing this.
--- NOTE | 2022-01-07 11:45 | NUR ---
Pt. was discharged off the unit escorted by security to a Taxi which will be driving her to the [facility]. Pt's belongings were returned to her by [employer]. This screenplay writer reviewed pt's discharge instructions with her, and she reported understanding. Pt. is refusing to continue Zyprexa and reports she does not take any medications. Pt. is able to contract for safety and was provided with mental health resources.
[2022-01-07 12:03] VITALS: BP 137/97
== END 2022-01-07 12:07 | disposition home or self-care (01) ==
LOC: ER 16:24
DX: F29 Unspecified psychosis not due to a substance or known physiological condition (principal); G89.29 Other chronic pain; F15.90 Other stimulant use, unspecified, uncomplicated; Z59.00 Homelessness unspecified; Z56.0 Unemployment, unspecified; Z72.89 Other problems related to lifestyle; Z79.899 Other long term (current) drug therapy
CPT/HCPCS: 36415; 80053; 80305; 80320; 81003; 81025; 84443; 85025; 96372; 99285; J1630

== ENCOUNTER 2022-01-13 18:58 | Emergency (ER) | payer MEDICAID ==
[~2022-01-13] VITALS: Ht 162.6 cm; Wt 53.1 kg
[2022-01-13 19:17] VITALS: BP 138/102
--- NOTE | 2022-01-13 20:35 | NUR ---
break RN notes:pt asleep, awaiting to be seen by Ed provider.
== END 2022-01-13 21:55 | disposition home or self-care (01) ==
LOC: ER 19:00
DX: Z00.00 Encounter for general adult medical examination without abnormal findings (principal); G89.29 Other chronic pain; F15.90 Other stimulant use, unspecified, uncomplicated; Z59.00 Homelessness unspecified; Z56.0 Unemployment, unspecified; Z79.899 Other long term (current) drug therapy
CPT/HCPCS: 99281

== ENCOUNTER 2022-03-19 15:12 | Emergency (ER) | payer MEDICAID ==
[~2022-03-19] VITALS: Ht 162.6 cm; Wt 47.7 kg
[2022-03-19 15:16] VITALS: BP 130/83
--- NOTE | 2022-03-19 16:17 | NUR ---
mayo and jerrell provided
== END 2022-03-19 16:34 | disposition home or self-care (01) ==
LOC: ER 15:13
DX: F15.10 Other stimulant abuse, uncomplicated (principal); E86.0 Dehydration; F17.200 Nicotine dependence, unspecified, uncomplicated; Z59.00 Homelessness unspecified; G89.29 Other chronic pain; Z79.899 Other long term (current) drug therapy
CPT/HCPCS: 99281

== ENCOUNTER 2022-03-22 03:03 | Emergency (ER) | payer MEDICAID ==
[~2022-03-22] VITALS: Ht 167.6 cm; Wt 49.1 kg
[2022-03-22 03:24] VITALS: BP 119/86
[2022-03-22 03:38] LABS: BASOPHILS # (AUTO) 0.1 X10'3 (0-0.2); BASOPHILS % (AUTO) 0.9 % (0-1); EOSINOPHILS # (AUTO) 0.3 X10'3 (0-0.9); EOSINOPHILS % (AUTO) 3.1 % (0-6); HEMOGLOBIN 13.7 g/dl (12.0-16.0); LYMPHOCYTES # (AUTO) 4.3 X10'3 (1.1-4.8); LYMPHOCYTES % (AUTO) 49.2 % (21-51); MEAN CORPUSCULAR HEMOGLOBIN 32.5 PG (27.0-31.0); MEAN CORPUSCULAR HGB CONC 34.2 g/dL (33.0-36.5); MEAN CORPUSCULAR VOLUME 94.9 FL (78-98); MEAN PLATELET VOLUME 6.8 FL (7.4-10.4); MONOCYTES # (AUTO) 0.8 X10'3 (0-0.9); MONOCYTES % (AUTO) 9.6 % (2-12); NEUTROPHILS # (AUTO) 3.2 X10'3 (1.8-7.7); NEUTROPHILS % (AUTO) 37.2 % (42-75); PLATELET COUNT 418 X10'3 (140-440); RED BLOOD COUNT 4.22 X10'6 (4.20-5.60); WHITE BLOOD COUNT 8.6 X10'3 (4.5-11.0)
[2022-03-22] MEDS: normal saline 1000ml 1,000 ML IV ONE (03:40)
[2022-03-22 03:41] LABS: CLARITY,URINE CLEAR (Clear); COLOR,URINE YELLOW (Yellow); GLUCOSE, URINE NEGATIVE (Neg); KETONES,URINE NEGATIVE (Neg); LEUKOCYTE ESTERASE ,URINE SMALL (Neg); NITRITES, URINE NEGATIVE (Neg); OCCULT BLOOD,URINE LARGE (Neg); PH,URINE 5.5 (4.8-8.0); PROTEIN,URINE NEGATIVE (Neg); UROBILINOGEN,URINE 0.2 E.U/dL (0.2-1.0)
[2022-03-22] MEDS: ketorolac trometh. 30mg/ml inj. IV ONE (03:41)
[2022-03-22] MEDS: ondansetron/PF 4mg/2ml inj IV ONE (03:41)
[2022-03-22 03:45] LABS: UA COLLECTION TYPE CLN CATCH MIDSTREAM
[2022-03-22 03:52] LABS: TRICHOMONAS,URINE MOD /HPF (NEGATIVE)
[2022-03-22 03:53] LABS: BACTERIA,URINE FEW /HPF (Neg); MUCUS STRANDS FEW /LPF (Neg); SQUAMOUS EPITHELIAL CELL,UR MODERATE /LPF (FEW); WBC,URINE 0-4 /HPF (0-4)
[2022-03-22 03:56] LABS: URINE AMPHETAMINE SCREEN POSITIVE (Neg); URINE BARBITUATE SCREEN NEGATIVE (Neg); URINE BENZODIAZEPINES SCREEN NEGATIVE (Neg); URINE CANNABINOID SCREEN NEGATIVE (Neg); URINE COCAINE SCREEN NEGATIVE (Neg); URINE METHADONE SCREEN NEGATIVE (Neg); URINE OPIATE SCREEN NEGATIVE (Neg); URINE PHENCYCLIDINE SCREEN NEGATIVE (Neg)
[2022-03-22 03:57] LABS: ALANINE AMINOTRANSFERASE 45 U/L (12-78); ALBUMIN 3.1 G/DL (3.4-5.0); ALBUMIN/GLOBULIN RATIO 0.8 (1.1-1.5); ALKALINE PHOSPHATASE 83 IU/L (46-116); ANION GAP 6 (8-16); ASPARTATE AMINO TRANSFERASE 37 U/L (10-37); BILIRUBIN,TOTAL 0.3 MG/DL (0.1-1.0); BLOOD UREA NITROGEN 16 MG/DL (7-18); BUN/CREATININE RATIO 21.9 (6.6-38.0); CHLORIDE 102 MMOL/L (99-107); CREATININE 0.73 MG/DL (0.40-0.90); GLUCOSE 95 MG/DL (70-104); LIPASE 178 U/L (73-393); POTASSIUM 3.6 MMOL/L (3.5-5.1); SODIUM 139 MMOL/L (135-145); TOTAL CARBON DIOXIDE 30.8 MMOL/L (24-32); eGFR > 90 ML/MIN
[2022-03-22 04:00] LABS: URINE HCG NEGATIVE (NEG)
[2022-03-22] MEDS ORDERED: METR-159 PO (04:09)
== END 2022-03-22 04:31 | disposition home or self-care (01) ==
LOC: ER 03:04
DX: A59.03 Trichomonal cystitis and urethritis (principal); R10.84 Generalized abdominal pain; F15.90 Other stimulant use, unspecified, uncomplicated; Z98.890 Other specified postprocedural states; Z72.89 Other problems related to lifestyle; Z56.0 Unemployment, unspecified; Z59.00 Homelessness unspecified; Z79.899 Other long term (current) drug therapy; Z79.2 Long term (current) use of antibiotics
CPT/HCPCS: 80053; 80305; 81001; 81025; 83690; 85025; 87088; 96361; 96374; 96375; 99284; J1885; J2405; J7030

== ENCOUNTER 2022-04-08 09:29 | Emergency (ER) | payer MEDICAID | END 2022-04-08 14:00 | disposition left against medical advice (07) | LOC: ER 09:30 | DX: F29 Unspecified psychosis not due to a substance or known physiological condition (principal); Z53.21 Procedure and treatment not carried out due to patient leaving prior to being seen by health care provider | CPT/HCPCS: A6446; A6449 ==

== ENCOUNTER 2022-04-08 17:19 | Emergency (ER) | payer MEDICAID ==
[~2022-04-08] VITALS: Ht 160 cm; Wt 48.4 kg
[2022-04-08 18:03] VITALS: BP 111/69
== END 2022-04-09 00:55 | disposition left against medical advice (07) ==
LOC: ER 17:21
DX: Z00.8 Encounter for other general examination (principal); Z53.21 Procedure and treatment not carried out due to patient leaving prior to being seen by health care provider

== ENCOUNTER 2022-04-09 00:35 | Emergency (ER) | payer MEDICAID ==
[~2022-04-09] VITALS: Ht 162.6 cm; Wt 54.5 kg
[2022-04-09 00:49] VITALS: BP 120/80
== END 2022-04-09 03:42 | disposition left against medical advice (07) ==
LOC: ER 00:36
DX: R11.10 Vomiting, unspecified (principal); R10.9 Unspecified abdominal pain; Z53.21 Procedure and treatment not carried out due to patient leaving prior to being seen by health care provider

== ENCOUNTER 2022-07-05 22:44 | Emergency (ER) | payer MEDICAID ==
[~2022-07-05] VITALS: Ht 157.5 cm; Wt 52.0 kg
[2022-07-05] MEDS ORDERED: dexamethasone sod phosphate 10mg/ml inj PO STA (23:33)
[2022-07-05] MEDS ORDERED: ibuprofen tablet 400 MG TABLET PO ONE (23:35)
[2022-07-05] MEDS ORDERED: LIDOcaine Viscous 15ml cup MM PRN (23:35)
[2022-07-05] MEDS ORDERED: ondansetron 4mg rapidly disintigrating tab PO ONE (23:35)
--- NOTE | 2022-07-05 23:35 | NUR ---
NO LABS PER ELENA CABALLERO.
[2022-07-05] MEDS ORDERED: BENZ-38 PO (23:40)
[2022-07-05] MEDS ORDERED: LIDO20SO16 PO (23:40)
[2022-07-05] MEDS ORDERED: IBUP-1984 PO (23:40)
[2022-07-05 23:51] VITALS: BP 118/86
== END 2022-07-05 23:50 | disposition home or self-care (01) ==
LOC: ER 22:45
DX: B34.9 Viral infection, unspecified (principal); F17.200 Nicotine dependence, unspecified, uncomplicated; F15.10 Other stimulant abuse, uncomplicated; G89.29 Other chronic pain; Z79.899 Other long term (current) drug therapy
CPT/HCPCS: 71045; 99284; J1100